=== PATIENT | male | born 1995 | race Caucasian/White ===

== ENCOUNTER 2024-09-04 10:35 | Outpatient (CLI) | payer BC, SELFPAY | END 2024-09-04 10:36 | disposition home or self-care (01) | PROVIDERS: PCP Family Medicine; Visit Provider Internal Medicine | DX: Z13.228 Encounter for screening for other metabolic disorders (principal); Z13.220 Encounter for screening for lipoid disorders | CPT/HCPCS: 80053; 80061 ==

== ENCOUNTER 2024-09-27 18:04 | Outpatient (CLI) | payer BC, SELFPAY | END 2024-09-27 18:05 | disposition home or self-care (01) | LOC: LAB 18:04 | PROVIDERS: PCP Family Medicine; Visit Provider Podiatrist | DX: L60.2 Onychogryphosis (principal); M25.572 Pain in left ankle and joints of left foot; M25.571 Pain in right ankle and joints of right foot; B35.1 Tinea unguium | CPT/HCPCS: 87102 ==